=== PATIENT | female | born 1990 | race Caucasian/White ===

== ENCOUNTER 2018-09-09 22:01 | Inpatient (IN) | payer SELFPAY ==
[~2018-09-09] VITALS: Ht 170.2 cm; Wt 69.7 kg
[2018-09-09] MEDS ORDERED: HYDROmorphone 2 MG/ML SYRINGE IVP ONE (23:15)
[2018-09-09] MEDS ORDERED: HALOPERIDOL LACTATE 5 MG/ML VIAL IVP ONE (23:15)
[2018-09-09] MEDS ORDERED: SODIUM CHLORIDE 0.9% 1,000 ML IV ONE (23:15)
[2018-09-09] MEDS ORDERED: CefTRIAXone SODIUM 2 GM in DEXTROSE 5%-WATER 20 ML IV ONE (23:30)
[2018-09-10] MEDS ORDERED: ONDANSETRON HCL 4 MG/2 ML VIAL IVP PRN ×2 (00:15)
[2018-09-10] MEDS ORDERED: ZOLPIDEM TARTRATE 5 MG TABLET PO PRN (00:15)
[2018-09-10] MEDS ORDERED: ACETAMINOPHEN 325 MG TABLET PO PRN ×3 (00:15→08:30)
[2018-09-10] MEDS ORDERED: 0.9% SODIUM CHLORIDE 10 ML SYRINGE IVP PRN ×2 (00:15)
[2018-09-10] MEDS ORDERED: BISACODYL 10 MG RECTAL RECTAL SUPPOSITORY PR PRN ×2 (00:15→08:30)
[2018-09-10] MEDS ORDERED: MAGNESIUM HYDROXIDE SUSPENSION 30 ML UDCUP PO PRN ×2 (00:15→08:30)
[2018-09-10] MEDS ORDERED: MORPHINE SULFATE 4 MG/ML SYRINGE IVP PRN (00:15)
[2018-09-10] MEDS ORDERED: ZOLPIDEM TARTRATE 10 MG TABLET PO PRN ×3 (00:15→08:30)
[2018-09-10] MEDS: RINGERS SOLUTION,LACTATED 1,000 ML IV SCH ×3 (00:34→19:50)
[2018-09-10 00:36] VITALS: BP 94/64
[2018-09-10 04:44] VITALS: BP 101/62
[2018-09-10] MEDS: MORPHINE SULFATE 4 MG/ML SYRINGE IVP PRN ×2 (05:01→09:31)
[2018-09-10 07:12] LABS: BASOPHILS % (AUTO) 0.3 % (0.0-2.0); EOSINOPHILS % (AUTO) 0.1 % (1.0-6.0); HEMOGLOBIN 11.2 g/dL (12.0-16.0); LYMPHOCYTES # (AUTO) 2.7 K/uL (1.0-4.8); LYMPHOCYTES % (AUTO) 29.7 % (22.0-44.0); MEAN CORPUSCULAR HEMOGLOBIN 31.7 pg (26.0-34.0); MEAN CORPUSCULAR HGB CONC 34.1 G/dL (31.0-37.0); MEAN CORPUSCULAR VOLUME 93 fL (80-100); MONOCYTES # (AUTO) 0.7 K/uL (0.1-1.0); MONOCYTES % (AUTO) 7.3 % (2.0-9.0); NEUTROPHILS # (AUTO) 5.8 K/uL (1.8-7.7); NEUTROPHILS % (AUTO) 62.6 % (40.0-70.0); PLATELET COUNT (AUTO) 240 K/uL (150-450); RED BLOOD CELL COUNT(AUTO) 3.54 MIL/uL (4.00-5.20); RED CELL DISTRIBUTION WIDTH 13.3 % (11.5-14.5)
[2018-09-10 07:23] LABS: ALANINE AMINOTRANSFERASE 16 U/L (12-78); ALBUMIN 2.8 g/dL (3.4-5.0); ALKALINE PHOSPHATASE 57 U/L (46-116); ANION GAP 6 mmol/L (8-16); ASPARTATE AMINOTRANSFERASE 14 U/L (15-37); BILIRUBIN,TOTAL 0.6 mg/dL (0.1-1.0); CALCIUM, TOTAL 7.2 mg/dL (8.8-10.5); CARBON DIOXIDE 24 mmol/L (22-29); CHLORIDE 106 mmol/L (98-107); CREATININE 0.74 mg/dL (0.60-1.30); GLOMERULAR FILTR. RATE CALC > 60 mL/min (>60); GLUCOSE,RANDOM 89 mg/dL (70-110); POTASSIUM 3.4 mmol/L (3.5-5.1); SODIUM SERUM 136 mmol/L (136-145); UREA NITROGEN, BLOOD 6 mg/dL (7-18)
[2018-09-10 07:38] VITALS: BP 95/49
[2018-09-10] MEDS ORDERED: RINGERS SOLUTION,LACTATED 1,000 ML IV SCH (08:20)
[2018-09-10] MEDS ORDERED: OxyCODONE HCL/ACETAMINOPHEN 5-325 MG TABLET PO PRN ×2 (08:30)
[2018-09-10] MEDS ORDERED: HYDROCODONE/ACETAMINOPHEN 5-325 MG TABLET PO PRN ×2 (08:30)
[2018-09-10] MEDS ORDERED: MORPHINE SULFATE 10 MG/ML SYRINGE IVP PRN (08:30)
[2018-09-10] MEDS ORDERED: ACETAMINOPHEN/CODEINE 300-30 MG TABLET PO PRN (08:30)
[2018-09-10] MEDS ORDERED: ENOXAPARIN SODIUM 40 MG/0.4 ML PF SYRINGE SQ SCH (09:00)
[2018-09-10] MEDS ORDERED: DOCUSATE SODIUM 100 MG CAPSULE PO SCH (09:00)
[2018-09-10] MEDS ORDERED: PANTOPRAZOLE SODIUM 40 MG/VIAL IVP SCH (09:00)
[2018-09-10] MEDS: PANTOPRAZOLE SODIUM 40 MG DR TABLET PO SCH (09:30)
[2018-09-10] MEDS: DOCUSATE SODIUM 100 MG CAPSULE PO SCH ×2 (09:31→19:47)
[2018-09-10 11:53] VITALS: BP 105/63
[2018-09-10] MEDS: HYDROCODONE/ACETAMINOPHEN 5-325 MG TABLET PO PRN ×3 (12:07→20:26)
[2018-09-10 15:50] VITALS: BP 101/67
[2018-09-10] MEDS ORDERED: HEPARIN SODIUM,PORCINE 5,000 UNITS/ML VIAL SQ SCH (16:00)
[2018-09-10] MEDS: ONDANSETRON HCL 4 MG/2 ML VIAL IVP PRN (16:50)
[2018-09-10] MEDS ORDERED: IBUPROFEN 600 MG TABLET PO PRN (18:00)
[2018-09-10 20:08] VITALS: BP 110/64
[2018-09-11] VITALS (13 sets, daily range): BP systolic 90–118; BP diastolic 54–80
[2018-09-11] MEDS: HYDROCODONE/ACETAMINOPHEN 5-325 MG TABLET PO PRN ×3 (02:10→11:05)
[2018-09-11 05:30] LABS: BASOPHILS % (AUTO) 0.6 % (0.0-2.0); EOSINOPHILS % (AUTO) 2.2 % (1.0-6.0); HEMOGLOBIN 11.1 g/dL (12.0-16.0); LYMPHOCYTES # (AUTO) 3.1 K/uL (1.0-4.8); LYMPHOCYTES % (AUTO) 62.1 % (22.0-44.0); MEAN CORPUSCULAR HEMOGLOBIN 31.4 pg (26.0-34.0); MEAN CORPUSCULAR HGB CONC 33.5 G/dL (31.0-37.0); MEAN CORPUSCULAR VOLUME 94 fL (80-100); MONOCYTES # (AUTO) 0.4 K/uL (0.1-1.0); MONOCYTES % (AUTO) 7.3 % (2.0-9.0); NEUTROPHILS # (AUTO) 1.4 K/uL (1.8-7.7); NEUTROPHILS % (AUTO) 27.8 % (40.0-70.0); PLATELET COUNT (AUTO) 236 K/uL (150-450); RED BLOOD CELL COUNT(AUTO) 3.52 MIL/uL (4.00-5.20); RED CELL DISTRIBUTION WIDTH 13.3 % (11.5-14.5)
[2018-09-11 05:41] LABS: PROTHROMBIN TIME 10.1 SEC (9.4-11.6)
[2018-09-11 05:48] LABS: ALANINE AMINOTRANSFERASE 16 U/L (12-78); ALBUMIN 2.6 g/dL (3.4-5.0); ALKALINE PHOSPHATASE 57 U/L (46-116); ANION GAP 5 mmol/L (8-16); ASPARTATE AMINOTRANSFERASE 10 U/L (15-37); BILIRUBIN,TOTAL 0.3 mg/dL (0.1-1.0); CALCIUM, TOTAL 7.6 mg/dL (8.8-10.5); CARBON DIOXIDE 29 mmol/L (22-29); CHLORIDE 106 mmol/L (98-107); CREATININE 0.85 mg/dL (0.60-1.30); GLOMERULAR FILTR. RATE CALC > 60 mL/min (>60); GLUCOSE,RANDOM 99 mg/dL (70-110); POTASSIUM 3.5 mmol/L (3.5-5.1); SODIUM SERUM 140 mmol/L (136-145); TOTAL PROTEIN, SERUM 5.9 g/dL (6.4-8.2); UREA NITROGEN, BLOOD 4 mg/dL (7-18)
[2018-09-11] MEDS: ONDANSETRON HCL 4 MG/2 ML VIAL IVP PRN (06:02)
[2018-09-11] MEDS: RINGERS SOLUTION,LACTATED 1,000 ML IV SCH ×3 (06:02→23:53)
[2018-09-11] MEDS: DOCUSATE SODIUM 100 MG CAPSULE PO SCH ×2 (08:01→20:23)
[2018-09-11] MEDS: PANTOPRAZOLE SODIUM 40 MG DR TABLET PO SCH (08:01)
[2018-09-11] MEDS: KETOROLAC TROMETHAMINE 30 MG/ML VIAL IVP SCH ×3 (11:04→23:30)
[2018-09-11] MEDS ORDERED: DEXTROSE 5%-0.45% SODIUM CHL 1,000 ML IV PRN (12:52)
[2018-09-11] MEDS ORDERED: NALOXONE HCL 0.4 MG/ML VIAL IVP PRN (13:00)
[2018-09-11] MEDS ORDERED: NALOXONE HCL 0.4 MG/ML VIAL IM PRN (13:00)
[2018-09-11] MEDS: HYDROmorphone HCL 50 MG/NS/PF 100 ML IV PRN ×3 (14:10→18:44)
[2018-09-11] MEDS ORDERED: HYDROmorphone 2 MG/ML SYRINGE ONE (14:38)
[2018-09-11] MEDS ORDERED: GADOBUTROL 1 MMOL/ML 10 ML VIAL IVP ONE (16:36)
[2018-09-12 00:04] VITALS: BP 103/56
[2018-09-12 03:45] VITALS: BP 106/60
[2018-09-12] MEDS: KETOROLAC TROMETHAMINE 30 MG/ML VIAL IVP SCH ×2 (05:34→11:57)
[2018-09-12 07:50] VITALS: BP 114/53
[2018-09-12] MEDS: RINGERS SOLUTION,LACTATED 1,000 ML IV SCH ×2 (08:10→08:17)
[2018-09-12] MEDS: ONDANSETRON HCL 4 MG/2 ML VIAL IVP PRN (08:17)
[2018-09-12] MEDS ORDERED: BISACODYL 10 MG RECTAL RECTAL SUPPOSITORY PR ONE (11:45)
[2018-09-12 11:51] VITALS: BP 101/55
[2018-09-12] MEDS: PANTOPRAZOLE SODIUM 40 MG DR TABLET PO SCH (11:57)
[2018-09-12] MEDS: DOCUSATE SODIUM 100 MG CAPSULE PO SCH (11:57)
[2018-09-12] MEDS ORDERED: HYDR-4455 PO (12:59)
[2018-09-12] MEDS ORDERED: ONDA4 PO (13:00)
[2018-09-12] MEDS ORDERED: DSS100 PO (13:01)
== END 2018-09-12 15:15 | disposition home or self-care (01) | DRG 760 ==
LOC: EMS 22:01 → 6N 23:54
PROVIDERS: ADMIT Obstetrics & Gynecology; ATTEND Obstetrics & Gynecology
DX: N83.202 Unspecified ovarian cyst, left side (principal); N39.0 Urinary tract infection, site not specified; Z80.41 Family history of malignant neoplasm of ovary; N80.9 Endometriosis, unspecified; Z82.49 Family history of ischemic heart disease and other diseases of the circulatory system; Z83.3 Family history of diabetes mellitus; Z90.49 Acquired absence of other specified parts of digestive tract; Z90.721 Acquired absence of ovaries, unilateral
CPT/HCPCS: 72197; 76856; 96365; 96375; A9585; G0378; J0696; J1170; J1630; J1885; J2270; J2405; J7030; J7060; J7120